=== PATIENT | male | born 1945 | race Caucasian/White ===

== ENCOUNTER → 2018-05-22 | Outpatient (CLI) | payer OTHER | END | disposition home or self-care (01) | LOC: RADMRIMAIN 08:04 | PROVIDERS: ATTEND Orthopaedic Surgery | DX: Z53.9 Procedure and treatment not carried out, unspecified reason (principal) ==

== ENCOUNTER 2018-05-28 02:07 | Emergency (ER) | payer OTHER, MEDICARE ==
[2018-05-28 02:16] VITALS: RESP 18
[2018-05-28] MEDS ORDERED: HYDROcodone/APAP 5-325MG 1 EACH TAB PO STA (02:26)
--- NOTE | 2018-05-28 02:30 | ED ---
Upper Extremity HPI - General Source: patient Mode of arrival: ambulatory Limitations: no limitations <Kinza Rico - Last Filed: 05/28/18 18:04> <Dayanna Ospina - Last Filed: 05/29/18 21:40> - General Chief Complaint: Extremity Injury, Upper Stated Complaint: Thumb injury Time Seen by Provider: 05/28/18 02:20 - History of Present Illness Initial Comments: 72-year-old male patient presents to the emergency department today for evaluation of throbbing pain to the right thumb. Patient states around 6:00 this evening he smashed his finger between a window frame and a staple hammer. Patient states that he did take Tylenol when injury occurred. Patient states that the thumb was throbbing and making it difficult for him to sleep. Patient states he is having some slight tingling to the thumb. Denies any other injuries. Denies any previous injury. Patient denies any headache, neck pain, back pain, chest pain, shortness of breath, dizziness, weakness, abdominal pain , nausea, vomiting, or difficulties with bowel movements or urination. (Kinza Rico) - Related Data Home Medications Medication Instructions Recorded Confirmed Saxagliptin HCl [Onglyza] 2.5 mg PO BID 05/28/18 05/28/18 glipiZIDE [Glucotrol XL] 10 mg PO BID 05/28/18 05/28/18 metFORMIN HCL [Glucophage] 500 mg PO BID 05/28/18 05/28/18 Allergies Allergy/AdvReac Type Severity Reaction Status Date / Time latex Allergy Rash/Hives Verified 05/28/18 02:16 Review of Systems ROS Other: All systems not noted in ROS Statement are negative. <Kinza Rico - Last Filed: 05/28/18 18:04> ROS Other: All systems not noted in ROS Statement are negative. <Dayanna Ospina - Last Filed: 05/29/18 21:40> ROS Statement: Those systems with pertinent positive or pertinent negative responses have been documented in the HPI. Past Medical History Past Medical History: Diabetes Mellitus History of Any Multi-Drug Resistant Organisms: None Reported Past Surgical History: Appendectomy, Orthopedic Surgery Additional Past Surgical History / Comment(s): Knee sx Past Psychological History: No Psychological Hx Reported Smoking Status: Former smoker Past Alcohol Use History: Rare Past Drug Use History: None Reported <Kinza Rico - Last Filed: 05/28/18 18:04> General Exam Limitations: no limitations General appearance: alert, in no apparent distress, other (This is a well- developed, well-nourished elderly male patient in no acute distress. Vital signs upon presentation are temperature 97.5F, pulse 64, respirations 18, blood pressure 159/87, pulse ox 98% on room air.) Respiratory exam: Present: normal lung sounds bilaterally. Absent: respiratory distress, wheezes, rales, rhonchi, stridor Cardiovascular Exam: Present: regular rate, normal rhythm, normal heart sounds. Absent: systolic murmur, diastolic murmur, rubs, gallop, clicks Extremities exam: Present: full ROM, tenderness (Distal aspect of the right thumb), normal capillary refill, other (Patient is evidence of subungual hematoma to the right thumb, approximately 30% of the nailbed. Patient has mild soft tissue swelling. Patient does exhibit full range of motion. Skin is otherwise pink, warm, and dry. Cap refills less than 3 seconds. Radial pulses 2+ and equal bilaterally.). Absent: normal inspection, pedal edema, joint swelling, calf tenderness Neurological exam: Present: alert, oriented X3, CN II-XII intact Psychiatric exam: Present: normal affect, normal mood Skin exam: Present: warm, dry, intact, normal color. Absent: rash <Kinza Rico - Last Filed: 05/28/18 18:04> Vital Signs 05/28/18 05/28/18 02:10 03:23 Temperature 97.5 F L 97.9 F Pulse Rate 64 66 Respiratory 18 18 Rate Blood Pressure 159/87 143/80 O2 Sat by Pulse 98 99 Oximetry Procedures <Kinza Rico - Last Filed: 05/28/18 18:04> <Dayanna Ospina - Last Filed: 05/29/18 21:40> - Procedures Initial comment: Performed trephination to the right thumbnail. Prepped the nail with ChloraPrep. Used the electrocautery pen to puncture the nail. Did have output of dark red blood, patient did report improvement of symptoms. Patient tolerated procedure well. Bacitracin and dressing applied over nail. (Kinza Rico) Medical Decision Making - Radiology Data Radiology results: report reviewed, image reviewed <Kinza Rico - Last Filed: 05/28/18 18:04> <Dayanna Ospina - Last Filed: 05/29/18 21:40> - Medical Decision Making 72-year-old male patient presented to the emergency department today for evaluation of injury to the right thumb. Physical examination did reveal approximately 30% subungual hematoma to the lateral nail bed. Nail edges were intact. Patient had full range of motion of the thumb. X-ray showed no evidence of fracture. Did perform nail trephination as documented. Patient tolerated the procedure well did have relief of symptoms. He was educated regarding wound care. He is instructed to follow-up with his primary care physician for recheck in 1-2 days. Return parameters discussed in detail. He verbalized understanding and agreed with this plan. (Kinza Rico) I personally saw and examined the patient. I reviewed and agree with the mid- level provider findings including all diagnostic interpretations and treatment plans as written unless otherwise stated. I was present for rodriguez portions of any procedures performed. (Dayanna Ospina) - Radiology Data 3 views of the right thumb were obtained. There was no fracture or dislocation. There is mild spurring at the first carpometacarpal joint. There is spurring at the IP joint of the thumb. Impression by Dr. Fernandez shows no acute bony abnormality of the right thumb. (Kinza Rico) Disposition Is patient prescribed a controlled substance at d/c from ED?: No Time of Disposition: 03:00 <Kinza Rico - Last Filed: 05/28/18 18:04> <Dayanna Ospina - Last Filed: 05/29/18 21:40> Clinical Impression: Subungual hematoma, Contusion of right thumb Disposition: HOME SELF-CARE Condition: Good Instructions: Subungual Hematoma (ED), Contusion in Adults (ED) Additional Instructions: Apply ice, rest, elevate the hand. Keep wound clean and dry. Follow-up with your primary care physician for recheck in 1-2 days. Return immediately for any new, worsening, or concerning symptoms. Referrals: Nida Spicer MD [Primary Care Provider] - 1-2 days
--- NOTE | 2018-05-28 02:45 | XR ---
EXAMINATION TYPE: XR finger RT DATE OF EXAM: 05/28/2018 COMPARISON: NONE HISTORY: Pain TECHNIQUE: 3 views FINDINGS: I see no fracture nor dislocation. There is mild spurring at the first carpometacarpal join t. There is slight spurring at the IP joint of the thumb. IMPRESSION: No acute bony abnormality of the right thumb.
[2018-05-28] MEDS ORDERED: ACET/COD 300 MG/30 MG STARTER PACK 6 TAB BTL PO STA (03:00)
[2018-05-28 03:24] VITALS: BP 143/80; PULSE 66; TEMP 97.9
== END 2018-05-28 03:24 | disposition home or self-care (01) ==
LOC: EC 02:07
DX: S60.111A Contusion of right thumb with damage to nail, initial encounter (principal); E11.9 Type 2 diabetes mellitus without complications; Z87.891 Personal history of nicotine dependence; Z79.84 Long term (current) use of oral hypoglycemic drugs; Z91.040 Latex allergy status; W23.1XXA Caught, crushed, jammed, or pinched between stationary objects, initial encounter
CPT/HCPCS: 11740; 99283

== ENCOUNTER → 2019-04-17 | Outpatient (CLI) | payer OTHER ==
--- NOTE | 2019-04-17 10:51 | XR ---
EXAMINATION TYPE: XR Hip Complete RT DATE OF EXAM: 04/17/2019 CLINICAL HISTORY: Right hip pain TECHNIQUE: AP and frogleg views of the right hip are obtained. COMPARISON: None. FINDINGS: There is no acute fracture/dislocation evident in the right hip. There is an osseous prot uberance of the greater trochanter that has an atypical appearance for an osteophyte. This measures a pproximately 0.7 x 1.9 cm. Of the abductor musculature there is evidence of prior heterotopic ossific ation. The joint space in the left hip appears slightly narrowed in the cephalad direction with aceta bular roof sclerosis. The overlying soft tissue appears unremarkable. IMPRESSION: 1. No acute fracture or dislocation in the right hip. 2. Osseous protuberance from the greater trochanter has an atypical appearance for a simple enthesoph yte osteophyte. This could be further assessed with MR with contrast. 3. Mild right femoral acetabular arthropathy.
== END | disposition home or self-care (01) ==
LOC: RADXRMAIN 09:56
PROVIDERS: ATTEND Orthopaedic Surgery
DX: M16.11 Unilateral primary osteoarthritis, right hip (principal)
CPT/HCPCS: 73502

== ENCOUNTER 2019-08-21 15:36 | Emergency (ER) | payer OTHER ==
[2019-08-21 15:42] VITALS: BP 149/83; PULSE 67; RESP 18; TEMP 97.9
[2019-08-21] MEDS ORDERED: KETOROLAC 30 MG/ML 1 ML VIAL IM STA (16:04)
--- NOTE | 2019-08-21 16:08 | ED ---
ENT HPI - General Chief complaint: ENT Stated complaint: Ear pain Time Seen by Provider: 08/21/19 15:44 Source: patient Mode of arrival: ambulatory Limitations: no limitations - History of Present Illness Initial comments: Patient is a 73-year-old male presenting to emergency Department with complaints of right ear pain that has been ongoing for 2 weeks. Patient states he did go to his PCP a week ago and was prescribed Augmentin. Patient states this medicine is not helping and he is requesting a different medication. Patient states he did make an appointment with an ENT specialist but that is not for another week and a half. Patient denies any fever, chills, dizziness, blurry vision, , nausea, vomiting. He has no other complaints at this time. Upon arrival to the ER, vital signs are stable. - Related Data Home Medications Medication Instructions Recorded Confirmed Saxagliptin HCl [Onglyza] 2.5 mg PO BID 05/28/18 05/28/18 glipiZIDE [Glucotrol XL] 10 mg PO BID 05/28/18 05/28/18 metFORMIN HCL [Glucophage] 500 mg PO BID 05/28/18 05/28/18 Previous Rx's Medication Instructions Recorded Penicillin V Potassium [Pen Vee K] 500 mg PO BID 10 Days #20 tablet 08/21/19 Allergies Allergy/AdvReac Type Severity Reaction Status Date / Time latex Allergy Rash/Hives Verified 05/28/18 02:16 Review of Systems ROS Statement: Those systems with pertinent positive or pertinent negative responses have been documented in the HPI. ROS Other: All systems not noted in ROS Statement are negative. Past Medical History Past Medical History: Diabetes Mellitus History of Any Multi-Drug Resistant Organisms: None Reported Past Surgical History: Appendectomy, Orthopedic Surgery Additional Past Surgical History / Comment(s): Knee sx, ankle and clavicle Past Psychological History: No Psychological Hx Reported Smoking Status: Former smoker Past Alcohol Use History: Rare Past Drug Use History: None Reported General Exam - General Exam Comments Initial Comments: GENERAL: Well-appearing, well-nourished and in no acute distress. HEAD: Atraumatic, normocephalic. EYES: Pupils equal round and reactive to light, extraocular movements intact, sclera anicteric, conjunctiva are normal. ENT: Right TM is slightly bulging, mildly erythematous, EAC is normal. Left TM is normal. Nares patent, oropharynx clear without exudates. Moist mucous membranes. NECK: Normal range of motion, supple without lymphadenopathy or JVD. LUNGS: Breath sounds clear to auscultation bilaterally and equal. No wheezes rales or rhonchi. HEART: Regular rate and rhythm without murmurs, rubs or gallops. ABDOMEN: Soft, nontender, normoactive bowel sounds. No guarding, no rebound. No masses appreciated. : Deferred EXTREMITIES: Normal range of motion, no pitting or edema. No clubbing or cyanosis. NEUROLOGICAL: Normal speech, normal gait. PSYCH: Normal mood, normal affect. SKIN: Warm, Dry, normal turgor, no rashes or lesions noted. Limitations: no limitations Course Vital Signs 08/21/19 15:38 Temperature 97.9 F Pulse Rate 67 Respiratory 18 Rate Blood Pressure 149/83 O2 Sat by Pulse 99 Oximetry Medical Decision Making - Medical Decision Making Patient is a 73-year-old male complaining of right ear pain 2 weeks. Patient has been on Augmentin for the past few days without improvement of symptoms. He does have an appointment with an ENT in a week and a half. Exam reveals mild erythema and bulging of the right TM. Patient is requesting to put on penicillin. He states this has worked in the past. Patient will be given prescription for penicillin and will continue to follow-up with ENT. He is in agreement with this plan of care. Return parameters were discussed with the patient he verbalizes understanding. Disposition Clinical Impression: Right ear pain, Right otitis media Disposition: HOME SELF-CARE Condition: Stable Instructions (If sedation given, give patient instructions): Earache (ED) Additional Instructions: Please return to the Emergency Department if symptoms worsen or any other concerns. Take antibiotic as prescribed. Follow-up with ENT. Prescriptions: Penicillin V Potassium [Pen Vee K] 500 mg PO BID 10 Days #20 tablet Is patient prescribed a controlled substance at d/c from ED?: No Referrals: Nida Spicer MD [Primary Care Provider] - 1-2 days
== END 2019-08-21 16:23 | disposition home or self-care (01) ==
LOC: EC 15:36
DX: H66.91 Otitis media, unspecified, right ear (principal); E11.9 Type 2 diabetes mellitus without complications; Z79.84 Long term (current) use of oral hypoglycemic drugs; Z91.040 Latex allergy status; Z87.891 Personal history of nicotine dependence
CPT/HCPCS: 99282; 96372; J1885

== ENCOUNTER 2023-07-07 16:38 | Emergency (ER) | payer MEDICARE, OTHER ==
[2023-07-07 17:11] VITALS: RESP 16; TEMP 98.2
[2023-07-07] MEDS ORDERED: PROPARACAINE 0.5% OPHTH DROPS 15 ML BTL LEFT EYE STA (17:14)
[2023-07-07] MEDS ORDERED: FLUORESCEIN STRIPS 1 MG STRIP RIGHT EYE ONE (17:18)
[2023-07-07] MEDS ORDERED: TOBRAMYCIN 0.3% OPHTH DROPS 5 ML BTL LEFT EYE STA (17:45)
--- NOTE | 2023-07-07 17:50 | ED ---
Eye Problem HPI - General Chief complaint: Eye Problems Stated complaint: left eye pain Time Seen by Provider: 07/07/23 17:12 Source: patient Mode of arrival: ambulatory Limitations: no limitations - History of Present Illness Initial comments: 77-year-old male presenting to the ED with a chief complaint of eye problem. Patient states earlier today was trimming branches off of his flu tree when a branch recoiled and hit him in the left eye. For this, patient states he went to an urgent care who sent him here for further evaluation. Patient notes i mproving pain of the left eye and intermittent blurred vision and no vision losses. No other injuries at this time. Tetanus status unknown other complaints - Related Data Home Medications Medication Instructions Recorded Confirmed Saxagliptin HCl [Onglyza] 2.5 mg PO BID 05/28/18 05/28/18 glipiZIDE [Glucotrol XL] 10 mg PO BID 05/28/18 05/28/18 metFORMIN HCL [Glucophage] 500 mg PO BID 05/28/18 05/28/18 Previous Rx's Medication Instructions Recorded Penicillin V Potassium [Pen Vee K] 500 mg PO BID 10 Days #20 tablet 08/21/19 Allergies Allergy/AdvReac Type Severity Reaction Status Date / Time latex Allergy Rash/Hives Verified 07/07/23 16:56 Review of Systems ROS Statement: Those systems with pertinent positive or pertinent negative responses have been documented in the HPI. ROS Other: All systems not noted in ROS Statement are negative. Past Medical History Past Medical History: Diabetes Mellitus History of Any Multi-Drug Resistant Organisms: None Reported Past Surgical History: Appendectomy, Orthopedic Surgery Additional Past Surgical History / Comment(s): Knee sx, ankle and clavicle Past Psychological History: No Psychological Hx Reported Smoking Status: Former smoker Past Alcohol Use History: Rare Past Drug Use History: None Reported General Exam Limitations: no limitations General appearance: alert, in no apparent distress Eye exam: Present: PERRL, EOMI, other (Visual acuity 2070 left, 20/50 right. Pressure 14 left, pressure 11 right. Fluorescein exam did show corneal abrasion of the left eye however no other findings.) Neck exam: Present: normal inspection Respiratory exam: Present: normal lung sounds bilaterally Cardiovascular Exam: Present: regular rate, normal rhythm GI/Abdominal exam: Present: soft Neurological exam: Present: alert, oriented X3 Skin exam: Present: warm, dry Course Vital Signs 07/07/23 16:53 Temperature 98.2 F Pulse Rate 100 Respiratory 16 Rate Blood Pressure 142/94 O2 Sat by Pulse 98 Oximetry Medical Decision Making - Medical Decision Making Was pt. sent in by a medical professional or institution (JUDY Monsalve, [employer], urgent care, hospital, or longterm...) When possible be specific @ -No Did you speak to anyone other than the patient for history (EMS, parent, family, police, friend...)? What history was obtained from this source @ -No Did you review nursing and triage notes (agree or disagree)? Why? @ -I reviewed and agree with nursing and triage notes Were old charts reviewed (outside hosp., previous admission, EMS record, old EKG, old radiological studies, urgent care reports/EKG's, longterm records)? Report findings @ -No old charts were reviewed Differential Diagnosis (chest pain, altered mental status, abdominal pain women, abdominal pain men, vaginal bleeding, weakness, fever, dyspnea, syncope, headache, dizziness, GI bleed, back pain, seizure, CVA, palpatations, mental health, musculoskeletal)? @ -Corneal abrasion, corneal laceration. This is not meant to be an all- inclusive list. EKG interpreted by me (3pts min.). @ -None X-rays interpreted by me (1pt min.). @ -None done CT interpreted by me (1pt min.). @ -None done U/S interpreted by me (1pt. min.). @ -None done What testing was considered but not performed or refused? (CT, X-rays, U/S, labs)? Why? @ -None What meds were considered but not given or refused? Why? @ -Tenderness was to be updated however patient declined Did you discuss the management of the patient with other professionals (professionals i.e. JUDY Monsalve, [employer], lab, RT, psych nurse, social contact worker, automobile assembly supervisor, teacher, job placement officer, piano case and bench assembler)? Give summary @ -No Was smoking cessation discussed for >3mins.? @ -No Was critical care preformed (if so, how long)? @ -No Were there social determinants of health that impacted care today? How? (Homelessness, low income, unemployed, alcoholism, drug addiction, transportation, low edu. Level, literacy, decrease access to med. care, penitentiary, rehab)? @ -No Was there de-escalation of care discussed even if they declined (Discuss DNR or withdrawal of care, Hospice)? DNR status @ -No What co-morbidities impacted this encounter? (DM, HTN, Smoking, COPD, CAD, Cancer, CVA, ARF, Chemo, Hep., AIDS, mental health diagnosis, sleep apnea, morbid obesity)? @ -None Was patient admitted / discharged? Hospital course, mention meds given and route, prescriptions, significant lab abnormalities, going to OR and other pertinent info. @ -Discharge 77-year-old male presenting to the ED status post left eye injury. Exam did have findings consistent with corneal abrasion. No other concerning findings on exam. Provided tobramycin eyedrops here in the ED and sent home with those eyedrops. Provided referral to see ophthalmology. Discharged home in stable condition. Discussed return precautions with patient who verbalizes agreement. Patient declined having his tetanus updated. Undiagnosed new problem with uncertain prognosis? @ -No Drug Therapy requiring intensive monitoring for toxicity (Heparin, Nitro, Insulin, Cardizem)? @ -No Were any procedures done? @ -No Diagnosis/symptom? @ -Corneal abrasion Acute, or Chronic, or Acute on Chronic? @ -Acute Uncomplicated (without systemic symptoms) or Complicated (systemic symptoms)? @ -Uncomplicated Side effects of treatment? @ -No Exacerbation, Progression, or Severe Exacerbation? @ -No Poses a threat to life or bodily function? How? (Chest pain, [place], [place], pneumonia, PE, COPD, DKA, ARF, appy, cholecystitis, CVA, Diverticulitis, Homicidal, S uicidal, threat to staff... and all critical care pts) @ -No Disposition Clinical Impression: Corneal abrasion Disposition: HOME SELF-CARE Condition: Good Instructions (If sedation given, give patient instructions): Corneal Abrasion (ED) Additional Instructions: Please return to the Emergency Department if symptoms worsen or any other concerns. Use 1-2 drops in the left eye every 4 hours for the next 7 days. Is patient prescribed a controlled substance at d/c from ED?: No Referrals: Sachi Mcleod MD [Primary Care Provider] - 1-2 days Time of Disposition: 17:53
[2023-07-07 18:33] VITALS: BP 137/86; PULSE 90
== END 2023-07-07 20:11 | disposition home or self-care (01) ==
LOC: EC 16:38
DX: S05.02XA Injury of conjunctiva and corneal abrasion without foreign body, left eye, initial encounter (principal); E11.9 Type 2 diabetes mellitus without complications; Z79.84 Long term (current) use of oral hypoglycemic drugs; Z91.040 Latex allergy status; Z87.891 Personal history of nicotine dependence; W22.8XXA Striking against or struck by other objects, initial encounter
CPT/HCPCS: 99283